=== PATIENT | female | born 1995 | race Caucasian/White ===

== ENCOUNTER 2017-06-03 08:13 | Outpatient (CLI) | payer OTHER ==
--- NOTE | 2017-06-03 12:47 | MRI ---
MR ANGIOGRAM LOWER EXTREMITY WITH AND WITHOUT CONTRAST: History: R20.12 right leg paresthesias. N79.661. Pain. Right martinez pain. Compartment syndrome. Comparison: None. FINDINGS: There is patent bilateral common femoral, femoral, deep femoral arteries as well as the popliteal, po sterior tibial, anterior tibial and dorsalis pedis arteries as well as the perioneal arteries. IMPRESSION: Patent vasculature. POS: [facility]
== END 2017-06-03 08:14 | disposition home or self-care (01) ==
LOC: MRI 08:13
PROVIDERS: ATTEND Family Medicine Sports Medicine
DX: M79.661 Pain in right lower leg (principal); R20.2 Paresthesia of skin
CPT/HCPCS: C8912